=== PATIENT | male | born 1965 ===

== ENCOUNTER → 2018-01-05 | Outpatient (CLI) | payer OTHER ==
[~2018-01-05] MED LIST: ALLEGRA ALLERG180 MG PO; GILTUSS TR TAB1 EACH PO; KETO10TA2 PO; VASOTEC10 MG PO; ZITHROMAX TRI-500 MG PO
== END | disposition home or self-care (01) ==
LOC: PPHC 08:37
DX: B34.9 Viral infection, unspecified (principal)

== ENCOUNTER → 2018-01-26 | Outpatient (CLI) | payer OTHER ==
[~2018-01-26] MED LIST changes: +HYDROCHLOROTH12.5 MG PO
== END | disposition home or self-care (01) ==
LOC: PPHC 08:55
DX: K64.8 Other hemorrhoids (principal)

== ENCOUNTER 2019-11-02 08:44 | Emergency (ER) | payer OTHER ==
[~2019-11-02] VITALS: Ht 162.6 cm; Wt 72.1 kg
[2019-11-02] MEDS ORDERED: OSEL75CA PO (11:27)
[2019-11-02] MEDS ORDERED: DOLOGEN CAPLET1 EACH PO (11:27)
[2019-11-02] MEDS ORDERED: TUSNEL LIQUID178 ML PO (11:27)
== END 2019-11-02 11:39 | disposition home or self-care (01) ==
LOC: ER 08:44
DX: J11.1 Influenza due to unidentified influenza virus with other respiratory manifestations (principal)

== ENCOUNTER 2020-02-22 18:30 | Emergency (ER) | payer OTHER ==
[~2020-02-22] VITALS: Ht 162.6 cm; Wt 76.2 kg
[~2020-02-22 18:30] MED LIST changes: +DOLOGEN CAPLET1 EACH PO; +OSEL75CA PO; +TUSNEL LIQUID178 ML PO
[2020-02-22] MEDS ORDERED: HYZAAR 50-12.51 EACH (18:41)
[2020-02-22] MEDS ORDERED: ZEBETA (18:41)
== END 2020-02-22 19:47 | disposition home or self-care (01) ==
LOC: ER 18:30
DX: K29.70 Gastritis, unspecified, without bleeding (principal)

== ENCOUNTER 2020-07-17 09:45 | Emergency (ER) | payer OTHER ==
[~2020-07-17] VITALS: Ht 162.6 cm; Wt 76.7 kg
[~2020-07-17 09:45] MED LIST changes: +HYZAAR 50-12.51 EACH; +ZEBETA
== END 2020-07-17 12:54 ==
LOC: ER 09:45
DX: I16.0 Hypertensive urgency (principal); I10 Essential (primary) hypertension; B34.9 Viral infection, unspecified